=== PATIENT | female | born 1990 | race African-American/Black ===

== ENCOUNTER 2016-09-13 09:42 | Emergency (ER) | payer BC ==
[~2016-09-13] VITALS: Ht 172.7 cm; Wt 91.6 kg
[2016-09-13 10:19] VITALS: BP 121/64
[2016-09-13] MEDS ORDERED: NAPROXEN 500 MG TABLET PO STA (10:33)
[2016-09-13] MEDS ORDERED: HYDROcodone/APAP 5/325MG 1 TAB TABLET PO ONE (11:00)
--- NOTE | 2016-09-13 11:26 | RAD ---
Indication injury several days earlier. Persistent pain. AP oblique and lateral views of the right ankle were obtained. No bony abnormality is seen
[2016-09-13] MEDS ORDERED: TRAM-29 PO (11:48)
--- NOTE | 2016-09-13 11:48 | PHYS DOC ---
Past Medical History Past Medical History: No Pertinent History Past Surgical History: No Surgical History Additional Information: 3 CIGS/DAY Alcohol Use: Occasionally Drug Use: None Adult General Chief Complaint Chief Complaint: ANKLE PROBLEM HPI HPI Patient is a 26 year old female who presents with mild right lateral ankle pain that began a week ago after she rolled her right ankle. Patient states she was going down some steps when she missed the last step and rolled her ankle and fell. Patient denies any loss of consciousness. Review of Systems Review of Systems Constitutional: Denies fever or chills [] Musculoskeletal: Right lateral ankle pain Integument: Denies rash or skin lesions [] Neurologic: Denies headache, focal weakness or sensory changes [] Endocrine: Denies polyuria or polydipsia [] Current Medications Current Medications Current Medications Medications (Trade) Dose Ordered Sig/Hector Start Time Stop Time Status Last Admin Dose Admin Acetaminophen/ Hydrocodone Bitart (Lortab 5/325) 1 tab 1X ONCE 09/13/16 11:00 09/13/16 11:01 DC 09/13/16 10:48 1 TAB Naproxen (Naprosyn) 500 mg 1X STAT 09/13/16 10:33 09/13/16 10:36 DC 09/13/16 10:48 500 MG Allergies Allergies Allergies Coded Allergies Type Severity Reaction Last Updated Verified No Known Drug Allergies 09/13/16 No Physical Exam Physical Exam Constitutional: Well developed, well nourished, no acute distress, non-toxic appearance. [] Back: No tenderness, no CVA tenderness. [] Extremities: Right lateral ankle with mild soft tissue swelling. Tenderness on palpation of the right lateral ankle. Full range of motion to the right ankle and foot. +2 right pedal pulse. Cap refill less than 2 seconds the right lower extremity. Neurologic: Alert and oriented X 3, normal motor function, normal sensory function, no focal deficits noted. [] Psychologic: Affect normal, judgement normal, mood normal. [] Current Patient Data Vital Signs Vital Signs Date Time Temp Pulse Resp B/P (MAP) Pulse Ox O2 Delivery O2 Flow Rate FiO2 09/13/16 10:48 18 99 Room Air 09/13/16 10:19 98.2 68 98.2 EKG EKG [] Radiology/Procedures Radiology/Procedures []PROCEDURE: ANKLE RIGHT 3V Indication injury several days earlier. Persistent pain. AP oblique and lateral views of the right ankle were obtained. No bony abnormality is seen DICTATED and SIGNED BY: WILLIAM SORENSEN MD DATE: 09/13/16 1122 CC: GUNNAR GUTHRIE APRN; NO PCP ~ Course & Med Decision Making Course & Med Decision Making Pertinent Labs and Imaging studies reviewed. (See chart for details) Patient is in the ED right ankle pain after falling a week ago. Right ankle x- rays interpreted by radiologist are negative for any acute findings. Air cast applied to the right ankle by the test lab technician, neurovascular exam done by me is normal, cap refill <2 seconds. Ice elevation encouraged. F/u with orthopedic doctor in one week. Dragon Disclaimer Dragon Disclaimer This electronic medical record was generated, in whole or in part, using a voice recognition dictation system. Departure Departure Impression: Primary Impression: Ankle sprain Additional Impression: Fall down steps Disposition: HOME, SELF-CARE Condition: STABLE Referrals: NO PCP (PCP) FLAQUITO VENTURA MD follow-up in one week Patient Instructions: Ankle Sprain, Fall Prevention and Home Safety Additional Instructions: You were seen for right ankle sprain. Wear the air cast provided in the emergency room as needed and tolerated. Ice and elevate the extremity. Take the prescribed pain medicines as needed. Follow-up with the provided orthopedic doctor in one week if pain continues. Scripts Tramadol Hcl (ULTRAM) 50 Mg Tablet 1 TAB PO Q6HRS, #30 TAB Prov: GUNNAR GUTHRIE APRN 09/13/16 Problem Qualifiers Primary Impression: Ankle sprain Encounter type: initial encounter Involved ligament of ankle: unspecified ligament Laterality: right Qualified Codes: S93.401A - Sprain of unspecified ligament of right ankle, initial encounter Additional Impression: Fall down steps Encounter type: initial encounter Qualified Codes: W10.8XXA - Fall (on) ( from) other stairs and steps, initial encounter GUNNAR GUTHRIE APRN Sep 13, 2016 11:48
== END 2016-09-13 12:00 | disposition home or self-care (01) ==
LOC: ER 09:42
DX: S93.401A Sprain of unspecified ligament of right ankle, initial encounter (principal); F17.210 Nicotine dependence, cigarettes, uncomplicated; W10.8XXA Fall (on) (from) other stairs and steps, initial encounter; Y93.89 Activity, other specified; Y99.8 Other external cause status; Y92.89 Other specified places as the place of occurrence of the external cause
CPT/HCPCS: 73610; 99284; L4350